=== PATIENT | male | born 1950 | race Caucasian/White ===

== ENCOUNTER 2021-05-29 23:07 | Observation (INO) ==
[2021-05-29] MEDS ORDERED: SODIUM CHLORIDE 0.9% 1000ML 1,000 ML IV SCH (23:30)
[2021-05-29 23:35] LABS: Base Excess VBG -0.9 mEq/L; HCO3 VBG 24 mmol/L; PCO2 VBG 42 mmHg (38-50); PO2 VBG 60 mmHg; pH VBG 7.38 (7.36-7.41)
[2021-05-29 23:37] LABS: Basophils # (auto) 0.04 K/uL (0-0.2); Basophils % (auto) 0.5 %; Eosinophils # (auto) 0.09 K/uL (0-0.5); Hemoglobin 17.3 g/dL (14.0-18.0); Immature Granulocytes # (auto) 0.02 K/uL (0.00-0.02); Immature Granulocytes % (auto) 0.2 %; Lymphocytes # (auto) 2.15 K/uL (1.2-3.4); Lymphocytes % (auto) 24.8 %; Mean Corpuscular Hemoglobin 27.3 pg (25-34); Mean Corpuscular Hgb Conc 34.6 g/dL (32-36); Mean Platelet Volume 10.9 fL (7.4-10.4); Monocytes # (auto) 0.65 K/uL (0.11-0.59); Monocytes % (auto) 7.5 %; Neutrophils # (auto) 5.71 K/uL (1.4-6.5); Platelet Count 215 K/uL (130-400); RDW Coefficient of Variation 13.8 % (11.5-14.5); RDW Standard Deviation 39.7 fL (36.4-46.3); Red Blood Count 6.33 M/uL (4.7-6.1); White Blood Count 8.66 K/uL (4.8-10.8)
--- NOTE | 2021-05-29 23:38 | XRay Report ---
SINGLE VIEW CHEST CLINICAL HISTORY: Generalized weakness. FINDINGS: An AP, portable, upright chest radiograph is obtained. No prior studies are available for c omparison at the time of dictation. The patient is status post midline sternotomy. The heart is enlar ged noting atherosclerotic calcification of the thoracic aorta. The pulmonary vasculature is nonconge sted. The lungs and pleural spaces are clear. No pneumothorax is seen. The bony thorax is grossly int act. IMPRESSION: Cardiomegaly with no active disease in the chest. ACT 112: Negative or not required by law. Electronically signed by: Luís Chan M.D. 05/29/2021 11:37 PM
[2021-05-29 23:59] LABS: Alanine Aminotransferase 13 U/L (7-52); Albumin Globulin Ratio 1.8 (0.9-2); Albumin Level 4.7 gm/dl (3.4-5.0); Alkaline Phosphatase 79 U/L (34-104); Anion Gap 11 (3-11); Aspartate Aminotransferase 9 U/L (13-39); BUN Creatinine Ratio 13.1 (10-20); Bilirubin,Total 0.9 mg/dl (0.2-1.0); Blood Urea Nitrogen 14 mg/dl (6-23); Calcium 9.8 mg/dl (8.5-10.1); Carbon Dioxide 25 mmol/L (21-32); Chloride 98 mmol/L (98-107); Creatine Kinase 57 U/L (30-223); Est GFR (African American) 81.7 ml/min; Est GFR (Non-African American) 70.5 ml/min; Globulin 2.6 gm/dl (2.5-4.0); Glucose 386 mg/dl (70-99(Fasting)); Potassium 3.9 mmol/L (3.5-5.1); Sodium 134 mmol/L (136-145); Total Protein 7.3 gm/dl (6.0-8.3); Troponin I 0.03 ng/ml (0-0.04)
--- NOTE | 2021-05-30 00:07 | CT Scan Report ---
CT SCAN OF THE BRAIN WITHOUT IV CONTRAST CLINICAL HISTORY: Change in mental status. COMPARISON STUDY: No priors. TECHNIQUE: Unenhanced axial CT scan of the brain is performed from the vertex to the skull base. A do se lowering technique was utilized adhering to the principles of ALARA. CT DOSE: 614.27 mGy.cm FINDINGS: Brain parenchyma: There are age-related involutional changes noting mild subcortical and periventric ular microangiopathic change. There is no hemorrhage, mass effect, or evidence of acute territorial i schemia by CT criteria. Gonzales-white matter differentiation is preserved. No extra-axial fluid collecti on is seen. Ventricles, sulci, cisterns: Prominent secondary to involutional change. Intracranial vasculature: There is atherosclerotic calcification of the cavernous carotid and vertebr al arteries. Calvarium: Unremarkable. Sinuses and mastoids: The visualized paranasal sinuses are clear. The mastoid air cells are well pneu matized. Orbits: The bony orbits are grossly intact. IMPRESSION: There is no hemorrhage, mass effect, or evidence of acute territorial ischemia by CT crit geraldine. ACT 112: Negative or not required by law. Electronically signed by: Luís Chan M.D. 05/30/2021 12:05 AM
--- NOTE | 2021-05-30 01:13 | Emergency Department Note ---
History of Present Illness General Chief complaint: Confusion Stated complaint: confusion Time Seen by Provider: 05/29/21 23:10 History of Present Illness This 70-year-old presents to the ER complaining of confusion episode Location: Generalized Quality: Confused Severity: Moderate Duration: Tonight Timing: Tonight Context: Patient was driving erratically on the road and was pulled over by police and sent here Modifying factors: better with nothing; worse with nothing Patient apparently is from [place]. He is not sure how he got here. Patient denies chest pain, dyspnea, Christian pain or any other medical complaints. He states he feels fine. No alcohol use. He is a type II diabetic. No cell phone was on him. I did have the manager commercial real estate contact family and obtained a phone number of the son. I spoke to the son and states this has happened before. They state ever since his is past 3 months ago he has been having these episodes. Son: Yaw Colindresld: [phone] Past Med/Surg History Medical History Diabetes Surgical History Hx of CABG Social History Smoking Status: Never smoker Preferred Language: Khmer Feels Safe at Home: Yes Review of Systems A total of 10 systems reviewed and were otherwise negative Physical Exam Vital Signs Vital Signs - 24 hr 05/29/21 23:12 05/30/21 00:11 05/30/21 00:30 Temperature 36.9 C Temperature Source Oral Pulse Rate 97 H 85 Pulse Rate [Finger] 87 Respiratory Rate 18 18 18 Respiratory Effort / Characteristics Non-Labored Respiratory Depth Normal Blood Pressure 176/105 H Blood Pressure [Right Arm] 159/77 H Blood Pressure Mean 128 Blood Pressure Mean [Right Arm] 104 Blood Pressure Position Sitting Blood Pressure Position [Right Arm] Lying Pulse Oximetry 95 95 97 Oxygen Delivery Method Room Air Room Air Room Air Sepsis Recent Fever Within 48 Hours No Sepsis New/Unexplained Change in Mental Status Yes Sepsis Action Taken by Nursing No Action Required VITALS: Vitals are noted on the nurse's note and reviewed by myself. Vital signs stable. GENERAL: Pleasant gentleman following commands without difficulties, in no acute distress, nondiaphoretic, well-developed well-nourished. SKIN: The skin was without rashes, erythema, edema, or bruising. There is no tenting of the skin. Capillary reflex less than 2 seconds. HEAD: Normocephalic atraumatic. EARS: External auditory canals clear, tympanic membranes pearly gonzales without erythema or effusion bilaterally. EYES: Pupils equal round and reactive to light and accommodation. Conjunctivae without injection, sclerae without icterus. Extraocular movements intact. NOSE: Patent, turbinates without inflammation or discharge. MOUTH: Mucous membranes moist. Pharynx without erythema or exudate. Uvula midline. Airway patent. Tongue does not deviate. NECK: Supple without nuchal rigidity. No lymphadenopathy. No thyromegaly. Cervical spine is nontender. No JVD. HEART: Regular rate and rhythm LUNGS: Clear to auscultation bilaterally without wheezes, rales or rhonchi. No retractions or accessory muscle use. ABDOMEN: Positive bowel sounds x 4. Normal tympanic percussion. Soft, nontender, without masses or organomegaly. Hankins sign negative. No guarding or rebound tenderness. No CVA tenderness MUSCULOSKELETAL: No muscle atrophy, erythema, or edema noted. NEURO: Patient was alert and oriented to person place and time. Normal sensation to light and sharp touch. No focal neurological deficits. Cranial nerves II through XII grossly intact. No pronator. Cerebellar exam intact. 5 out of 5 strength throughout Course Administered Medications Discontinued Medications Sodium Chloride (Nss 1000ml) 1,000 mls @ 999 mls/hr IV .[id number] ROSA ELENA Stop: 05/30/21 00:30 Last Infusion: 05/30/21 00:50 Dose: 0 mls/hr Documented by: [id number] Admin: 05/29/21 23:32 Dose: 999 mls/hr Documented by: [id number] Medical Decision Making Medical Records Attestation: I reviewed the patient's medical records. Home Medications Current Medication List: was personally reviewed by me Laboratory Data Attestation: I reviewed the patient's lab results. Result diagrams: 05/29/21 23:19 05/29/21 23:19 Lab Results 05/29/21 05/29/21 05/29/21 Range/Units 23:12 23:19 23:19 WBC (4.8-10.8) K/uL RBC (4.7-6.1) M/uL Hgb (14.0-18.0) g/dL Hct (42-52) % MCV (80-100) fL MCH (25-34) pg MCHC (32-36) g/dL RDW Std Deviation (36.4-46.3) fL RDW Coeff of Lanie (11.5-14.5) % Plt Count (130-400) K/uL MPV (7.4-10.4) fL Immature Gran % (Auto) % Neut % (Auto) % Lymph % (Auto) % Fountain % (Auto) % Eos % (Auto) % Baso % (Auto) % Neut # (Auto) (1.4-6.5) K/uL Lymph # (Auto) (1.2-3.4) K/uL Fountain # (Auto) (0.11-0.59) K/uL Eos # (Auto) (0-0.5) K/uL Baso # (Auto) (0-0.2) K/uL Immature Gran # (Auto) (0.00-0.02) K/uL VBG pH (7.36-7.41) VBG pCO2 (38-50) mmHg VBG pO2 mmHg VBG HCO3 mmol/L VBG O2 Saturation % VBG Base Excess mEq/L Sodium 134 L (136-145) mmol/L Potassium 3.9 (3.5-5.1) mmol/L Chloride 98 (98-107) mmol/L Carbon Dioxide 25 (21-32) mmol/L Anion Gap 11 (3-11) BUN 14 (6-23) mg/dl Creatinine 1.07 (0.6-1.4) mg/dl Est Cr Clr Drug Dosing Not Reportable Est GFR ( Amer) 81.7 ml/min Est GFR (Non-Af Amer) 70.5 ml/min BUN/Creatinine Ratio 13.1 (10-20) Glucose 386 H* (70-99(Fasting)) mg/dl POC Glucose 391 H* (70-99) mg/dl Calcium 9.8 (8.5-10.1) mg/dl Magnesium 2.0 (1.7-2.4) mg/dl Total Bilirubin 0.9 (0.2-1.0) mg/dl AST 9 L (13-39) U/L ALT 13 (7-52) U/L Alkaline Phosphatase 79 (34-104) U/L Total Creatine Kinase 57 (30-223) U/L Troponin I 0.03 (0-0.04) ng/ml Total Protein 7.3 (6.0-8.3) gm/dl Albumin 4.7 (3.4-5.0) gm/dl Globulin 2.6 (2.5-4.0) gm/dl Albumin/Globulin Ratio 1.8 (0.9-2) TSH (0.300-4.500) uIu/ml Ethyl Alcohol mg/dL < 10.0 (<10.0) mg/dl SARS-CoV-2, RNA, NAAT (NEGATIVE) 05/29/21 05/29/21 05/29/21 Range/Units 23:19 23:19 23:24 WBC 8.66 (4.8-10.8) K/uL RBC 6.33 H (4.7-6.1) M/uL Hgb 17.3 (14.0-18.0) g/dL Hct 50.0 (42-52) % MCV 79.0 L (80-100) fL MCH 27.3 (25-34) pg MCHC 34.6 (32-36) g/dL RDW Std Deviation 39.7 (36.4-46.3) fL RDW Coeff of Lanie 13.8 (11.5-14.5) % Plt Count 215 (130-400) K/uL MPV 10.9 H (7.4-10.4) fL Immature Gran % (Auto) 0.2 % Neut % (Auto) 66.0 % Lymph % (Auto) 24.8 % Fountain % (Auto) 7.5 % Eos % (Auto) 1.0 % Baso % (Auto) 0.5 % Neut # (Auto) 5.71 (1.4-6.5) K/uL Lymph # (Auto) 2.15 (1.2-3.4) K/uL Fountain # (Auto) 0.65 H (0.11-0.59) K/uL Eos # (Auto) 0.09 (0-0.5) K/uL Baso # (Auto) 0.04 (0-0.2) K/uL Immature Gran # (Auto) 0.02 (0.00-0.02) K/uL VBG pH 7.38 (7.36-7.41) VBG pCO2 42 (38-50) mmHg VBG pO2 60 mmHg VBG HCO3 24 mmol/L VBG O2 Saturation 90.0 % VBG Base Excess -0.9 mEq/L Sodium (136-145) mmol/L Potassium (3.5-5.1) mmol/L Chloride (98-107) mmol/L Carbon Dioxide (21-32) mmol/L Anion Gap (3-11) BUN (6-23) mg/dl Creatinine (0.6-1.4) mg/dl Est Cr Clr Drug Dosing Est GFR ( Amer) ml/min Est GFR (Non-Af Amer) ml/min BUN/Creatinine Ratio (10-20) Glucose (70-99(Fasting)) mg/dl POC Glucose (70-99) mg/dl Calcium (8.5-10.1) mg/dl Magnesium (1.7-2.4) mg/dl Total Bilirubin (0.2-1.0) mg/dl AST (13-39) U/L ALT (7-52) U/L Alkaline Phosphatase (34-104) U/L Total Creatine Kinase (30-223) U/L Troponin I (0-0.04) ng/ml Total Protein (6.0-8.3) gm/dl Albumin (3.4-5.0) gm/dl Globulin (2.5-4.0) gm/dl Albumin/Globulin Ratio (0.9-2) TSH 2.131 (0.300-4.500) uIu/ml Ethyl Alcohol mg/dL (<10.0) mg/dl SARS-CoV-2, RNA, NAAT (NEGATIVE) 05/29/21 05/30/21 Range/Units Unknown 00:41 WBC (4.8-10.8) K/uL RBC (4.7-6.1) M/uL Hgb (14.0-18.0) g/dL Hct (42-52) % MCV (80-100) fL MCH (25-34) pg MCHC (32-36) g/dL RDW Std Deviation (36.4-46.3) fL RDW Coeff of Lanie (11.5-14.5) % Plt Count (130-400) K/uL MPV (7.4-10.4) fL Immature Gran % (Auto) % Neut % (Auto) % Lymph % (Auto) % Fountain % (Auto) % Eos % (Auto) % Baso % (Auto) % Neut # (Auto) (1.4-6.5) K/uL Lymph # (Auto) (1.2-3.4) K/uL Fountain # (Auto) (0.11-0.59) K/uL Eos # (Auto) (0-0.5) K/uL Baso # (Auto) (0-0.2) K/uL Immature Gran # (Auto) (0.00-0.02) K/uL VBG pH (7.36-7.41) VBG pCO2 (38-50) mmHg VBG pO2 mmHg VBG HCO3 mmol/L VBG O2 Saturation % VBG Base Excess mEq/L Sodium (136-145) mmol/L Potassium (3.5-5.1) mmol/L Chloride (98-107) mmol/L Carbon Dioxide (21-32) mmol/L Anion Gap (3-11) BUN (6-23) mg/dl Creatinine (0.6-1.4) mg/dl Est Cr Clr Drug Dosing Est GFR ( Amer) ml/min Est GFR (Non-Af Amer) ml/min BUN/Creatinine Ratio (10-20) Glucose (70-99(Fasting)) mg/dl POC Glucose 338 H* (70-99) mg/dl Calcium (8.5-10.1) mg/dl Magnesium (1.7-2.4) mg/dl Total Bilirubin (0.2-1.0) mg/dl AST (13-39) U/L ALT (7-52) U/L Alkaline Phosphatase (34-104) U/L Total Creatine Kinase (30-223) U/L Troponin I (0-0.04) ng/ml Total Protein (6.0-8.3) gm/dl Albumin (3.4-5.0) gm/dl Globulin (2.5-4.0) gm/dl Albumin/Globulin Ratio (0.9-2) TSH (0.300-4.500) uIu/ml Ethyl Alcohol mg/dL (<10.0) mg/dl SARS-CoV-2, RNA, NAAT NEGATIVE (NEGATIVE) Imaging Data Attestation: I personally reviewed and interpreted this imaging study as follows: Radiologist's Impression: Head CT 05/29/21 23:22 CT SCAN OF THE BRAIN WITHOUT IV CONTRAST CLINICAL HISTORY: Change in mental status. COMPARISON STUDY: No priors. TECHNIQUE: Unenhanced axial CT scan of the brain is performed from the vertex to the skull base. A dose lowering technique was utilized adhering to the principles of ALARA. CT DOSE: 614.27 mGy.cm FINDINGS: Brain parenchyma: There are age-related involutional changes noting mild subcortical and periventricular microangiopathic change. There is no hemorrhage, mass effect, or evidence of acute territorial ischemia by CT criteria. Gonzales- white matter differentiation is preserved. No extra-axial fluid collection is seen. Ventricles, sulci, cisterns: Prominent secondary to involutional change. Intracranial vasculature: There is atherosclerotic calcification of the cavernous carotid and vertebral arteries. Calvarium: Unremarkable. Sinuses and mastoids: The visualized paranasal sinuses are clear. The mastoid air cells are well pneumatized. Orbits: The bony orbits are grossly intact. IMPRESSION: There is no hemorrhage, mass effect, or evidence of acute territorial ischemia by CT criteria. ACT 112: Negative or not required by law. Electronically signed by: Luís Chan M.D. 05/30/2021 12:05 AM Chest X-Ray 05/29/21 23:24 SINGLE VIEW CHEST CLINICAL HISTORY: Generalized weakness. FINDINGS: An AP, portable, upright chest radiograph is obtained. No prior studies are available for comparison at the time of dictation. The patient is status post midline sternotomy. The heart is enlarged noting atherosclerotic calcification of the thoracic aorta. The pulmonary vasculature is noncongested. The lungs and pleural spaces are clear. No pneumothorax is seen. The bony thorax is grossly intact. IMPRESSION: Cardiomegaly with no active disease in the chest. ACT 112: Negative or not required by law. Electronically signed by: Luís Chan M.D. 05/29/2021 11:37 PM MDM Narrative Prior records/ancillary studies reviewed and summarized above. Nursing notes reviewed. Additional history obtained from nursing. The patient's history was concerning for altered mental status. Differential diagnosis: Etiologies such as metabolic, infection, hypoglycemia, electrolyte abnormalities, cardiac sources, intracerebral event, toxicologic, neurologic, as well as others were entertained. Physical examination: As above. ER treatment provided: IV Lock Normal saline hydration. An order was placed for continuous cardiac monitoring. The monitor shows a rate of 60-1 50 with a sinus rhythm. I spoke to the son to obtain further history per the patient's request On reassessment the patients mental status improved. Diagnostics interpretation by me: ECG: Ordered for confusion EKG: Normal sinus, occasional PVC, right axis deviation, poor baseline, rate of 98. Impression normal sinus with PVCs with a right axis deviation interpreted by myself The labs revealed negative troponin. Negative alcohol Hyperglycemia without DKA. VBG was reviewed Imaging studies: As above Given the above diagnostic work-up and treatment, this episode appears to be consistent with confusion episode. Further treatment will be required. No acute findings were noted. Patient was neurovascularly and neurologically intact. Medicine was consulted. The son will brass pickler the patient in the morning. Consultation: A consultation was placed with the hospitalist. The case was discussed and diagnostics were reviewed. The patient was evaluated in the ER for further treatment. The chart was completed utilizing [employer] Speech voice recognition software. Grammatical errors, random word insertions, pronoun errors, and incomplete sentences are an occassional consequence of this system due to software limitations, ambient noise, and hardware issues. Any formal questions or concerns about the content, text, or information contained within the body of this dictation should be directly addressed to the physician regulatory assistant for clarification. Impression & Plan Altered mental status, Diabetes mellitus with hyperglycemia Discharge Plan Visit Data Chief Complaint: Confusion Stated Complaint: confusion ED Provider: Radha Nichole ED Midlevel Provider: Lola Cox Discharge Problem: Altered mental status, Diabetes mellitus with hyperglycemia Patient Disposition: Admitted As Inpatient Condition: Good Forms Stand Alone Forms: My [facility] Referrals Referrals: PCP,NO [Primary Care Provider] -
[2021-05-30] MEDS ORDERED: NovoLIN-R INSULIN PER UNIT CHARGE IV STA (03:26)
[2021-05-30] MEDS ORDERED: ACETAMINOPHEN 325 MG TAB PO PRN (05:37)
[2021-05-30] MEDS ORDERED: POLYETHYLENE (MIRALAX) 17 GM PACK PO PRN (05:37)
[2021-05-30] MEDS ORDERED: ONDANSETRON INJ 2 MG/ML 2 ML VIAL IV PRN (05:37)
[2021-05-30] MEDS ORDERED: NITROGLYCERIN SL 0.4 MG/TAB TAB SL PRN (05:37)
[2021-05-30] MEDS: SODIUM CHLORIDE 0.9% 1000ML 1,000 ML IV SCH ×2 (05:51→16:40)
[2021-05-30 07:22] LABS: Basophils # (auto) 0.03 K/uL (0-0.2); Basophils % (auto) 0.4 %; Eosinophils # (auto) 0.12 K/uL (0-0.5); Eosinophils % (auto) 1.6 %; Hematocrit (blood only) 42.8 % (42-52); Hemoglobin 14.9 g/dL (14.0-18.0); Immature Granulocytes # (auto) 0.02 K/uL (0.00-0.02); Immature Granulocytes % (auto) 0.3 %; Lymphocytes # (auto) 1.83 K/uL (1.2-3.4); Lymphocytes % (auto) 24.2 %; Mean Corpuscular Hemoglobin 27.2 pg (25-34); Mean Corpuscular Hgb Conc 34.8 g/dL (32-36); Mean Corpuscular Volume 78.1 fL (80-100); Mean Platelet Volume 10.7 fL (7.4-10.4); Monocytes # (auto) 0.66 K/uL (0.11-0.59); Monocytes % (auto) 8.7 %; Neutrophils # (auto) 4.91 K/uL (1.4-6.5); Neutrophils % (auto) 64.8 %; Platelet Count 175 K/uL (130-400); RDW Coefficient of Variation 13.7 % (11.5-14.5); RDW Standard Deviation 38.3 fL (36.4-46.3); Red Blood Count 5.48 M/uL (4.7-6.1); White Blood Count 7.57 K/uL (4.8-10.8)
[2021-05-30] MEDS: HEPARIN SOD 5,000 UNIT/0.5 ML VIAL SQ SCH ×3 (07:29→21:43)
[2021-05-30 08:06] LABS: Est GFR (African American) 102.1 ml/min; Est GFR (Non-African American) 88.1 ml/min; Potassium 3.8 mmol/L (3.5-5.1)
[2021-05-30 08:07] LABS: BUN Creatinine Ratio 14.9 (10-20); Calcium 8.8 mg/dl (8.5-10.1); Magnesium 1.8 mg/dl (1.7-2.4)
[2021-05-30] MEDS: INSULIN GLARGINE SOLOSTAR 100 UNITS/ML 3 ML PEN SC SCH ×2 (08:18→21:44)
[2021-05-30] MEDS: INSULIN ASPART PER UNIT SC SCH ×4 (08:18→20:53)
--- NOTE | 2021-05-30 08:28 | History and Physical Report ---
DATE OF ADMISSION: 05/30/2021. CHIEF COMPLAINT: Confusion. HISTORY OF PRESENT ILLNESS: A 70-year-old male with past medical history significant for diabetes, hypertension, hyperlipidemia, CAD status post CABG, who was found to be confused as he was driving erratically and his vehicle was stopped by iridologist and brought him to the hospital. The patient is currently alert and oriented. The patient states his 3 months ago and since then he is living close to his son in [place]. He says son brought him there to keep an eye on him. Patient says without telling his son he came to [place] to meet couple of people whom he knows. He says he was close to [facility] and then he was trying to go back to his house in [place] when he was following few people on the road. He thinks they were driving erratically and he tried to follow them and they thought he was driving erratically and hence iridologist came and brought him here. He could tell his name, he could tell his date of , knows that he is in the hospital in [place], thinks it is May 27, but knows the year correctly as 2021. Denies any headache, denies any blurred visions, denies any earache or runny nose. Has some cough. No fever, no nausea, no vomiting, no abdominal pain, no chest pain, no shortness of breath. Appetite is okay. No dysphagia. No diarrhea or constipation. Normal bladder movements. Ambulating okay. Currently resting comfortably and hemodynamically stable. He says he uses a bunch of medications, but he did not bring his medications as he was expecting to go back to his house in [place] and does not know his medications. ALLERGIES: No known drug allergies. PAST MEDICAL HISTORY: As mentioned above. PAST SURGICAL HISTORY: CABG. FAMILY HISTORY: Significant for both the parents have heart disease. SOCIAL HISTORY: Quit smoking 32 years ago. Denies any alcohol use. Currently living in [place] close to his son. REVIEW OF SYSTEMS: As per HPI. Rest of the review of systems is negative. PHYSICAL EXAMINATION: GENERAL: The patient is obese, not in acute distress. VITAL SIGNS: Temperature 36.9, pulse 87, respiratory rate 18, blood pressure 115/77, oxygen 97% on room air. HEENT: Pupils equal, round and reactive to light. Oral mucosa moist. NECK: No JVD, no masses. CARDIOVASCULAR: S1 and S2 heard. Regular rate and rhythm. No murmur, no gallop. RESPIRATORY SYSTEM: Normal AP diameter. No accessory muscle use. No wheezing, no crackles. ABDOMEN: Soft, bowel sounds present, nontender, no distention. CENTRAL NERVOUS SYSTEM: Cranial nerves, alert and oriented x3. Speech is clear, no facial droop. Insight is okay. Obeys simple commands. Moves extremities. EXTREMITIES: Trace pedal edema present. No erythema seen. LABORATORY DATA: WBC is 8.6, hemoglobin 17.3, hematocrit 50, platelets 215. Venous blood gas, pH of 7.38, pCO2 of 42, pO2 of 60. Sodium 134, potassium 3.9, chloride 98, bicarbonate 25, BUN 14, creatinine 1.07, serum glucose 386, calcium 9.8, magnesium 2, total bilirubin 0.2, AST 9, ALT 13, alkaline phosphatase 79, total creatine kinase 57, troponin I of 0.03, TSH 2.1, ethyl alcohol less than 10. SARS-CoV-2 RNA negative. IMAGING DATA: Chest x-ray, no acute findings. CT of the head, no acute findings. EKG: Sinus arrhythmia with frequent PVCs at a rate of 98. ST abnormalities seen. No previous ECGs to compare. ASSESSMENT AND PLAN: This 70-year-old male was found to be riding erratically on the road and confused and brought to the hospital. 1. Confusion: The patient is currently alert and oriented. Mental status seems to be okay. ER physician called the son, the phone is on the chart in the ER physician notes, and as per son, since his 3 months ago, this kind of episode has happened before. The patient may possibly have early dementia. Initial workup is negative. Except for hyperglycemia, rest of the labs are okay, ABGs are okay. Will observe in the hospital. Will get a neuro consult and also psych consult. Will monitor in the [facility]. 2. Hyperglycemia: The patient has a history of diabetes. The patient does not remember what medicine he takes. He says he was expected to go back home. He has all his medication at home, he is not carrying with him. Will give a dose of IV insulin and place him on Lantus insulin sliding scale. Follow the HbA1c, follow the blood sugars. Will place on IV fluids. 3. History of coronary artery disease: Status post coronary artery bypass graft as per the patient. Will place him on aspirin, statin, and beta prema. 4. Hypertension: Will place on low-dose lisinopril 5 mg and Lopressor 25 b.i.d. and monitor the blood pressure. 5. Hyperlipidemia: Will place him on statin. 6. Deep venous thrombosis: Heparin subcutaneous. DISPOSITION: Closely monitor in the [facility]. Social service to help with discharge planning. To discuss with son for further disposition in the a.m. Job ID: [id number] MTDD
[2021-05-30] MEDS ORDERED: lisinopril 5 MG TAB PO SCH (09:00)
[2021-05-30] MEDS ORDERED: METOPROLOL TARTRATE 25 MG TAB PO SCH (09:00)
[2021-05-30] MEDS ORDERED: ATORVASTATIN 40 MG TAB PO SCH (09:00)
--- NOTE | 2021-05-30 09:46 | Communication Note ---
Date of Service: May 30, 2021 Patient seen and examined Patient is currently AOX3 Exam is grossly unremarkable Denied any complaints on ROS Denied any depression, suicidal/homicidal ideation. Reported he is getting over grieving his that some months ago Agree with plans as detailed by Dr Lopez in H&P this morning Agree with psych c/s Get MRI brain, EEG, TSH, B12. Patient does not recall names/doses of his home meds Continue lisinopril, insulin regimen started by Dr Lopez Spoke with son over the phone, updated him. Son will call home to get us list of his home meds for proper med rec
--- NOTE | 2021-05-30 11:24 | Electrocardiogram Report ---
Test Reason : Blood Pressure : / mmHG Vent. Rate : 098 BPM Atrial Rate : 098 BPM P-R Int : 202 ms QRS Dur : 124 ms QT Int : 378 ms P-R-T Axes : 048 046 204 degrees QTc Int : 482 ms Sinus rhythm with frequent Premature ventricular complexes and PAC's Left atrial enlargement Left bundle branch block Abnormal ECG No previous ECGs available Confirmed by Jose Vincent ([id number]) on 05/30/2021 11:24:17 AM Referred By: REFERRED SELF Confirmed By:Jose Vincent
[2021-05-30 12:48] LABS: Appearance Urine Clear (Clear); Bilirubin Urine Negative (Negative); Blood Urine Negative (Negative); Color Urine Yellow; Glucose Urine UA 3+ (Negative); Ketones Urine Negative (Negative); Leukocyte Esterase Urine Negative (Negative); Nitrite Urine Negative (Negative); Protein Urine Negative (Negative); Specific Gravity Urine 1.031 (1.000-1.030); Urobilinogen Urine Negative (Negative)
[2021-05-30 13:46] LABS: Folate (Folic Acid) 13.31 ng/ml (>5.38)
[2021-05-30] MEDS ORDERED: GADOBUTROL 65ML VIAL IV ONE (13:51)
--- NOTE | 2021-05-30 14:14 | Magnetic Resonance Report ---
MR brain seizure wo/w con HISTORY: 70 years-old Male new cognitive dysfunction, mult vasc risk factors acute seizure like acti vity. COMPARISON: Head CT of same day TECHNIQUE: Multiplanar multisequence MRI of the brain was obtained both with and without 9.7 cc Gadav ist utilizing seizure protocol. FINDINGS: Fiscal Technician localizer images demonstrate no gross extracranial abnormality. No restricted diffusion to sugg est acute or subacute infarct. Midline structures appear unremarkable. Partially imaged C7. Degenerat santi changes are noted within the imaged cervical spine. No acute intracranial hemorrhage, midline alma ft, abnormal extra-axial collection, hydrocephalus or mass. Subcentimeter lipoma of the falx cerebri. No pathologic intracranial blooming artifact. Age-related involutional changes with mild ex vacuo ve ntriculomegaly. Mild white matter/FLAIR hyperintense foci suggest chronic microvascular ischemic dise ase. Mesial temporal lobes appear normal bilaterally. No acute seizure focus, kiser matter heterotopia or cortical dysplasia. There is no abnormal intra-axial or extra-axial enhancement. The cerebral venous sinuses and major ar terial flow voids appear patent. Mastoid air cells and paranasal sinuses are generally clear. The sku ll, orbits and soft tissues are unremarkable IMPRESSION: 1. No acute intracranial abnormality. No acute or subacute infarct. 2. No abnormal enhancement. 3. Age-related involutional changes with suggestion of mild chronic microvascular ischemic disease. ACT 112: Negative or not required by law. The above report was generated using voice recognition software. It may contain grammatical, syntax o r spelling errors. Electronically signed by: Cuba Bridges M.D. 05/30/2021 2:13 PM
[2021-05-30 14:18] LABS: Amphetamines+Metham, Urine Neg (Neg); Barbiturates, Urine Neg (Neg); Benzodiazepine, Urine Neg (Neg); Cocaine, Urine Neg (Neg); MDMA (Ecstacy), Urine Neg (Neg); Methadone, Urine Neg (Neg); Opiate, Urine Neg (Neg); Phencyclidine, Urine Neg (Neg)
--- NOTE | 2021-05-30 14:37 | Consultation Report ---
DATE OF NOTE: 05/30/2021 REASON FOR CONSULTATION: Erratic behavior. HISTORY OF PRESENT ILLNESS: The patient is a 70-year-old male with diabetes, hypertension, and hyper lipidemia. The history is obtained from the chart as well I discussed the case with the patient's so n, Yaw Andrews. The patient was brought to our Emergency Room because he was stopped by the joseline ce for driving erratically. The patient indicates that he has been pulled over 3 times in the last w [place] for driving erratically. He does not recall where he was going yesterday, but indicates that he has been following a group of people. He does not know what the destination was. He denies that the re has been any accidents. He denies that he has been ill, has not had any headaches. No history of stroke. No new weakness or numbness. He has been noncompliant with his medications for an unknown period of time. ADDITIONAL HISTORY: Obtained from the son indicates that his mother suddenly in December and patient's son had his dad come live with him for 3-4 months and he moved into his own home about a month ago. The son did note some difficulty with memory and some strange trips; however, the patient indicates that his father has not always been truthful about things, so it has been very difficult f or him to assess his cognition. Apparently, the last 10 years, the patient and his have made poor financial choices, squandering money, living in a boarding house and being hoarders. He does believe that his mother was helping w ith medication management with the father, but he believes that his father was doing most of the bill pay. One of the contingencies to start living nearby the son was that he restart his medications. It was noted by the son that he was not taking his medications regularly. He has not been taking any of his medications for an unknown period of time. 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 Occasionally , prior he would get lost going to unfamiliar places, but would arrive a few minutes late. The patie nt worked until he was 66 and is retired. No history of stroke, seizure, cancer. His weight has been stable. He may have some polyuria and po lydipsia. His mother of dementia at 76 and she was diagnosed somewhere between 5-10 years prior . On admission, CT of the head noncontrast showed no acute abnormality. Chest x-ray, cardiomegaly w ith no active disease. Electrocardiogram, sinus rhythm with frequent PVCs and PACs, left atrial enla rgement, left bundle branch, abnormal EKG. Labs were notable for normal thyroid function, normal whi te count, H and H and platelet count. Serum sodium was 134, glucose 386 and point of care glucose 39 1, calcium and magnesium were normal. Liver functions were normal. CK normal. Urinalysis notable f or positive glucose, negative ketones. Tox screen was negative. COVID testing was negative. MEDICAL HISTORY: As above. PAST SURGICAL HISTORY: Bypass, quit smoking 32 years ago. No alcohol use. FAMILY HISTORY: As above. Additionally, both parents had heart disease. ALLERGIES: No known allergies. PHYSICAL EXAMINATION: The patient is awake and alert. He looks well nourished and he is in no distr ess. He is not oriented to the name of the hospital or the town and had difficulty generating that w e were in [place]. He gave [place] as the name of the [facility]. There is no right/left confu tonya. No spontaneous word finding difficulty, naming repetitions and 3-step commands were normal. M lula was 0/3 at 3 minutes. He does not know who the president is. He was vague on the names of the town where his children lived. He was also vague on the details of the people he was reported to be following and where they were going. Head was normocephalic, atraumatic. There were no carotid bru its, no heart murmurs. Heart is regular rate and rhythm. Pupils are equal, round and reactive to li ght. I could not visualize the optic nerve reliably on the right. It grossly appeared normal on the left. Normal fernandes, motility, facial symmetry. No dysarthria. Tongue is midline. Motor is 5/5, no drift. Normal rapid alternating movements. Symmetric reflexes, diminished ankle jerks, downgoing toes. [id number] is tremulous. [id number]-[id number] is normal. Venous stasis changes are noted in the feet. IMPRESSION: This patient appears currently to have cognitive dysfunction and does not appear to be d elirious. I am suspicious that he has an underlying dementia and he may have been more decompensated due to untreated hypertension, elevated blood sugars. PLAN: Recommend MRI of the brain with and without contrast, EEG to rule out seizures as the etiology of these episodes of erratic driving. Additional blood work including a B12, B1, folate, and RPR. If the patient is discharged prior to that workup, the testing will need to be performed as an outpat ient. The patient will need to establish with a neurologist in his area. The patient should not be permitt ed to drive at present. We will see the patient in followup tomorrow if he remains in the hospital. I sent a communication to Dr. Matamoros who appears to be the provider taking care of the patient. Job ID: [id number]
--- NOTE | 2021-05-30 16:14 | Psychiatric Consultation ---
Date of Consultation May 30, 2021 Impression / Recommendations Impression This is a 70 yo old admitted for confusion and erratic driving. Diagnostically consistent with likely neurocognitive disorder/dementia. No evidence for any primary psychiatric conditions causing his memory issues, does have grief related to his 's recent but he feels well supported by his family in coping with this. Given his reported history of wandering behaviors/erratic driving and worsening memory an outpatient neurocognitive workup is warranting to diagnose suspected dementia. He should not drive home once medical workup is complete, will need family to transport him back to [place] to ensure he gets there safely and would recommend he not drive until further memory workup is completed as he may no longer be appropriate to drive. Family may also want to consider having him in a more structured living environment or adding alarms to his home/GPS tracker on his phone and keys so they know if he leaves the home and begins wandering. (1) Neurocognitive disorder: -Outpatient neurocognitive evaluation for suspected neurocognitive disorder -Continue workup to rule out reversible causes -He will need someone to provide transport home to [place]; he should not drive until outpatient assessment has been completed and he has been deemed safe to drive Risk Factors Assessment Do You Have Access To A Gun?: No Psych History Identifying Data 70 yo man with no known psychiatric history was admitted medically for altered mental status after being pulled over for driving erratically and found to have urinary incontinence and limited recall. Psychiatry consulted for concern for possible depression. Chief Complaint "I can't remember where I was visiting, somewhere in [facility]". History of Present Illness Morris presented via police to the ED after he was found driving erratically with urinary incontinence and unable to recall details about where he had come from nor where he was going. On my assessment he denies any psychiatric symptoms though does endorse periods of sadness related to his 's recent a few months ago. He denies depression but states that sometimes the grief "weighs quite substantially". He denies SI stating "I would never do that, my middle son attempted suicide three times and I know how much that impacts a family". He denies any psychiatric history nor current symptoms of bobby nor psychosis. He denies anxiety. He denies any substance use. Denies any prior psych hospitalizations nor taking any psychiatric medications. He knows he is in the hospital and that it is May and 2021. He cannot recall the city nor who he was trying to visit nor where they lived in [place]. Knows he moved near his son in [place] but can't recall the name of the city. He denies any recent issues with balance or falls. States he has "probably" been having issues with his memory but cannot provide any type of timeline regarding when this started. 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 Past Psychiatric History Previous Psych History: denies Do You Have Access To A Gun?: No Allergies Allergy/AdvReac Type Severity Reaction Status Date / Time No Known Allergies Allergy Verified 05/30/21 01:38 Family History son with history of depression and suicide attempts Substance Abuse History denies any substance use Personal History Beliefs That Will Affect Care: None Patient History Medical History Diabetes Surgical History Hx of CABG Social History Smoking Status: Former smoker Do You Dip or Chew Tobacco: No; Hx Alcohol Use: Yes Alcohol type: beer Hx Substance Use: No Preferred Language: Serbian Communication Ability: Effective Knuckler Required: No Beliefs That Will Affect Care: None marital status: Current Living Situation: Alone How many Children do You have: 2 Feels Safe at Home: Yes Safety Concerns: Feels Safe At This Time Assistive Devices: None Physical Exam Psychiatric: Orientation: alert, oriented to person and oriented to place Apperance: appropriately dressed and appropriately groomed Eye Contact: + fair eye contact Motor Behavior: steady gait and station and no abnormal motor movements; n tremor Speech: normal rate/rhythm/volume of speech Affect: + constricted affect Mood: no depressed mood and no anxious mood Thought Process: + concrete thought process Thought Content: reality based without delusions Suicidal Thoughts: denies suicidal thoughts Homicidal Thoughts: denies homicidal thoughts Hallucinations: no auditory hallucinations and no visual hallucinations Cognition: attention grossly intact and language grossly intact; + recent memory not intact and + remote memory not intact Estimated Intelligence: consistent with education level Insight: + impaired insight Judgement: + impaired judgement Vital Signs (Past 24 Hours): Last Vital Signs Temp 37.0 C 05/30/21 15:29 Pulse 73 05/30/21 15:29 Resp 18 05/30/21 15:29 BP 112/69 05/30/21 15:29 Pulse Ox 96 05/30/21 15:29 Review of Systems All systems reviewed & are unremarkable except as noted in HPI & below Results & Data (PSY) Laboratory Results slightly low Na+ Diagnostic Findings normal CT head Medications Administered Atorvastatin Calcium (Atorvastatin 40 Mg Tab) 40 mg PO QAM [facility] Stop: 06/29/21 08:59 Last Admin: 05/30/21 07:29 Dose: 40 mg Documented by: [id number] Heparin Sodium (Porcine) (Heparin Sod 5,000 Unit/0.5 Ml Vial) 5,000 units SQ Q8 [facility]LE[facility] Stop: 06/29/21 05:59 Last Admin: 05/30/21 11:21 Dose: 5,000 units Documented by: [id number] Admin: 05/30/21 07:29 Dose: 5,000 units Documented by: [id number] Sodium Chloride (Nss 1000ml) 1,000 mls @ 100 mls/hr IV .Q10H [facility] ELENA Stop: 06/29/21 05:36 Last Admin: 05/30/21 05:51 Dose: 100 mls/hr Documented by: [id number] Insulin Aspart (Insulin Aspart Per Unit) 0 units SC ACHS [facility] Stop: 06/29/21 07:29 Last Admin: 05/30/21 12:13 Dose: 14 units Documented by: [id number] Cosigned by: [id number] Admin: 05/30/21 08:18 Dose: 11 units Documented by: [id number] Cosigned by: [id number] Insulin Glargine (Insulin Glargine Solostar 100 Units/Ml 3 Ml Pen) 6 units SC BID [facility]EE[facility] Stop: 06/29/21 08:59 Last Admin: 05/30/21 08:18 Dose: 6 units Documented by: [id number] Cosigned by: [id number] Lisinopril (Lisinopril 5 Mg Tab) 5 mg PO QAM [facility] Stop: 06/29/21 08:59 Last Admin: 05/30/21 07:28 Dose: 5 mg Documented by: [id number] Metoprolol Tartrate (Metoprolol Tartrate 25 Mg Tab) 25 mg PO BID [facility] ELENA Stop: 06/29/21 08:59 Last Admin: 05/30/21 07:29 Dose: 25 mg Documented by: [id number] Coding Level of Care Code 30536 Inpt Consult Level 3 Diagnoses Neurocognitive disorder R41.9
[2021-05-30] MEDS: RANOLAZINE 500 MG ER TAB PO SCH (21:47)
[2021-05-31] MEDS: HEPARIN SOD 5,000 UNIT/0.5 ML VIAL SQ SCH ×2 (06:08→15:48)
[2021-05-31 07:22] LABS: Estimated Average Glucose 309 mg/dl; Hemoglobin A1C 12.4 % (4.5-5.6)
[2021-05-31] MEDS ORDERED: PHARMACY GLYCEMIC MGMT CONSULT PRN (07:48)
[2021-05-31] MEDS: INSULIN ASPART PER UNIT SC SCH ×2 (07:59→12:11)
[2021-05-31] MEDS: RANOLAZINE 500 MG ER TAB PO SCH (08:02)
[2021-05-31] MEDS ORDERED: EZETIMIBE 10 MG TABLET PO SCH (09:00)
[2021-05-31] MEDS ORDERED: ISOSORBIDE MONO EXTENDED REL 60 MG TABCR PO SCH (09:00)
[2021-05-31] MEDS ORDERED: LOSARTAN POTASSIUM 50 MG TAB PO SCH (09:00)
[2021-05-31] MEDS ORDERED: ASPIRIN 81 MG ECTAB PO SCH (09:00)
[2021-05-31] MEDS ORDERED: ATENOLOL 50 MG TABLET PO SCH (09:00)
[2021-05-31] MEDS ORDERED: INSULIN GLARGINE SOLOSTAR 100 UNITS/ML 3 ML PEN SC SCH ×2 (09:00→21:00)
[2021-05-31] MEDS ORDERED: CLOPIDOGREL BISULFATE 75 MG TAB PO SCH (09:00)
--- NOTE | 2021-05-31 11:40 | Pharmacy Report ---
Pharmacy Glycemic Short Note 2 - Date of Service May 31, 2021 - Glycemic Short BSG Results (Last 24 hours): 05/30/21 05/30/21 05/30/21 11:42 16:34 20:21 POC Glucose 234 H 180 H 128 H 05/31/21 07:22 POC Glucose 230 H OUTPATIENT ANTIDIABETIC REGIMEN: * not available - Per notes patient does not know the names of home medications, there is a note that provider will be reaching out to patient's son to confirm home medications * A1c 12.4% ASSESSMENT: * 70 year old admitted with confusion. PMHx significant for DM, CAD, htn. Pharmacy consulted for glycemic monitoring. * Patient received total of 45 units of insulin yesterday, of which 12 units were basal * Fasting BSG elevated at 230 mg/dL - plan to titrate up basal insulin. Will trial between 20-25 units today to aim for more of 50/50 split with basal/novolog (based upon TDD of insulin yesterday) * Continue same CF/CR PLAN FOR INPATIENT GLYCEMIC CONTROL: * Hold outpatient oral diabetes medications * Basal insulin - increase * Lantus 10 units this AM * Lantus 10-15 units QPM * Bolus insulin * NovoLog per scale ACHS or Q6hrs while NPO * Goal Range: Low 110 mg/dL - High 140 mg/dL * Correction Factor: 30 mg/dL/unit * Nutritional / Prandial insulin per carb ratio of 1 unit per 7 grams CHO consumed PLAN FOR DISCHARGE: * A1c elevated on admission 12.4%. Likely, a component of noncompliance at home with medications. Will follow to determine if more information is found out about home medications
[2021-05-31] MEDS ORDERED: INSULIN GLARGINE SOLOSTAR 100 UNITS/ML 3 ML PEN SC ONE (11:45)
--- NOTE | 2021-05-31 11:50 | Neurology Progress Note ---
Date of Service May 31, 2021 Assessment & Plan (1) Neurocognitive disorder: Plan: 1. MRI brain- no strokes or lesions 2. EEG- not done may not need at this point 3. will need transportation back to home in [place] 4. he should not be driving. 5. vit b12 low, thiamine-pending, should check Vit D level 6. PT/OT for discharge needs 7. will need higher level of supervision and help with medications 8. psychiatry on board - probable undiagnosed dementia 9. he will need follow up once he is back in [place] with neurology for full work up for dementia (2) Altered mental status: Plan: 1. EEG not done Admission and Anticipated Discharge Date Admission Date: May 30, 2021 Supervising Physician Co-Signing Physician Notes Patient was seen and examined this afternoon. He is resting in bed. 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 This can be seen following severe psychsoccial stressors. He is oriented and following all commands. Will need follow up close to home when he returns. Emily lara from neuropsych eval as outpatient. Please call contact me with any additional questions or concerns. Cris Caceres is a 70 year old male with PMH- DM, HTN, HLD, CAD status post CABG, who was found to be confused as he was driving erratically and his vehicle was stopped by commodity analyst and brought him to [facility] ED 05/29/21. His 3 months ago and since then he is living close to his son in [place]. His son brought him there to keep an eye on him. he left [place] without telling his son he came to [place] to meet couple of people whom he knows. He was close to [facility] and then he was trying to go back to his house in [place] when he was following few people on the road. He says he uses a bunch of medications, but he did not bring his medications as he was expecting to go back to his house in [place] and does not know his medications.An MRI brain was ordered along with an EEG yesterday. He currently has no complaints he does not know how he arrived here or why he is here but admits to being confused. denies CP, SOB, abdominal pain, blacking out of passing out. Review of Systems Review of Systems: All systems reviewed & are unremarkable except as noted in HPI & below Physical Exam Physical Exam: Physical Exam: Constitutional: appearance over nourished, healthy and normal Ears, Nose, Mouth and Throat: mucous membranes moist, no injection and skin normal, eyes normal Cardiovascular: normal S-1 and S-2 and regular rate and rhythm Respiratory: clear to auscultation (CTA) and no rales, rhonchi or wheeze Musculoskeletal: no peripheral edema and good distal pulses Skin: no stigmata of neurocutaneous disease noted and normal and intact Eyes: extraocular muscles intact (EOMI) and pupils equal, round and reactive to light (PERRL) NEUROLOGIC EXAMINATION: Mental status: Alert and interactive Oriented May 31/ hospital but does not know the name but does know he is in [place]. he does not know where he lives Oriented to person Speech fluent with no evidence of aphasia Cranial Nerves smile eye brow raise Reflexes: Deep tendon reflexes were symmetrical and graded 2/5. Sensory: no sensory deficits Coordination: finger to nose Gait/Stance: Posture normal. Motor: Negative for pronator drift of out stretched arms with eyes closed. Strength: biceps triceps hand television servicer 5/5 bilaterally , hip flex plantar flex ext 5/5 Results & Data ([facility]) Vital Signs (Past 12 Hours) Vital Signs Temp Pulse Pulse Pulse Resp BP BP 05/31/21 11:15 37 C 70 17 112/70 05/31/21 08:00 84 116/76 05/31/21 07:30 36.8 C 70 17 122/78 05/31/21 07:00 79 05/31/21 03:15 36.6 C 70 18 114/70 Pulse Ox 05/31/21 11:15 95 05/31/21 08:00 05/31/21 07:30 96 05/31/21 07:00 05/31/21 03:15 98 Laboratory Results Abnormal lab results 05/30/21 05/30/21 05/30/21 Range/Units 06:55 12:42 12:42 POC Glucose (70-99) mg/dl Hemoglobin A1c 12.4 H (4.5-5.6) % Vitamin B12 141 L (211-911) pg/ml Ur Specific Benedict 1.031 H (1.000-1.030) Urine Glucose (UA) 3+ H (Negative) 05/30/21 05/30/21 05/31/21 Range/Units 16:34 20:21 07:22 POC Glucose 180 H 128 H 230 H (70-99) mg/dl Hemoglobin A1c (4.5-5.6) % Vitamin B12 (211-911) pg/ml Ur Specific Benedict (1.000-1.030) Urine Glucose (UA) (Negative) 05/31/21 Range/Units 11:35 POC Glucose 287 H (70-99) mg/dl Hemoglobin A1c (4.5-5.6) % Vitamin B12 (211-911) pg/ml Ur Specific Benedict (1.000-1.030) Urine Glucose (UA) (Negative) Diagnostic Findings CT head-there is no hemorrhage, mass effect, or evidence of acute territorial ischemia by CT criteria. CXR- Cardiomegaly with no active disease in the chest. MRI Brain-. No acute intracranial abnormality. No acute or subacute infarct. No abnormal enhancement. Age-related involutional changes with suggestion of mild chronic microvascular ischemic disease. (1) Altered mental status Altered mental status type: unspecified Qualified Code(s): R41.82 - Altered mental status, unspecified
[2021-05-31] MEDS ORDERED: INSULIN ASPART PER UNIT SC SCH (16:30)
--- NOTE | 2021-05-31 16:37 | Discharge Summary ---
Date of Service May 31, 2021 Admission HPI Per Admitting Provider A 70-year-old male with past medical history significant for diabetes, hypertension, hyperlipidemia, CAD status post CABG, who was found to be confused as he was driving erratically and his vehicle was stopped by manager trading and brought him to the hospital. The patient is currently alert and oriented. The patient states his 3 months ago and since then he is living close to his son in [place]. He says son brought him there to keep an eye on him. Patient says without telling his son he came to [place] to meet couple of people whom he knows. He says he was close to [facility] and then he was trying to go back to his house in [place] when he was following few people on the road. He thinks they were driving erratically and he tried to follow them and they thought he was driving erratically and hence manager [employer] came and brought him here. He could tell his name, he could tell his date of , knows that he is in the hospital in [place], thinks it is May 27, but knows the year correctly as 2021. Denies any headache, denies any blurred visions, denies any earache or runny nose. Has some cough. No fever, no nausea, no vomiting, no abdominal pain, no chest pain, no shortness of breath. Appetite is okay. No dysphagia. No diarrhea or constipation. Normal bladder movements. Ambulating okay. Currently resting comfortably and hemodynamically stable. He says he uses a bunch of medications, but he did not bring his medications as he was expecting to go back to his house in [place] and does not know his medications. Admission Exam Per Admitting Provider GENERAL: The patient is obese, not in acute distress. VITAL SIGNS: Temperature 36.9, pulse 87, respiratory rate 18, blood pressure 115/77, oxygen 97% on room air. HEENT: Pupils equal, round and reactive to light. Oral mucosa moist. NECK: No JVD, no masses. CARDIOVASCULAR: S1 and S2 heard. Regular rate and rhythm. No murmur, no ga llop. RESPIRATORY SYSTEM: Normal AP diameter. No accessory muscle use. No wheezing, no crackles. ABDOMEN: Soft, bowel sounds present, nontender, no distention. CENTRAL NERVOUS SYSTEM: Cranial nerves, alert and oriented x3. Speech is clear, no facial droop. Insight is okay. Obeys simple commands. Moves extremities. EXTREMITIES: Trace pedal edema present. No erythema seen. Principal Diagnosis Neurocognitive disorder Poorly controlled Diabetes mellitus Discharge Exam Constitutional + well hydrated; no acute distress Eyes PERRL, conjunctivae normal, anicteric sclerae ENMT external ear and nose normal, oropharynx normal Respiratory normal respiratory effort, lungs clear to auscultation Cardiovascular RRR S1 S2 Gastrointestinal (Abdomen) normal bowel sounds, soft, nontender, no hepatosplenomegaly Musculoskeletal no cyanosis or clubbing, extremities motor strength 5/5 Neurologic PERRL, EOMI, accommodation nl, no face palsy, no dysarthria Alert and oriented to person, place (knows he is in a hospital in [place] but knot name) and time Discharge Data Allergies Allergy/AdvReac Type Severity Reaction Status Date / Time No Known Allergies Allergy Verified 05/30/21 01:38 Consultations 05/30/21 01:07 ED Decision to Admit Stat 05/30/21 05:37 Consult Psychiatry Routine 05/30/21 08:00 Consult Neurology Routine Ordered Studies 05/29/21 23:22 CT head/brain wo con Stat Brain parenchyma: There are age-related involutional changes noting mild subcortical and periventricular microangiopathic change. There is no hemorrhage, mass effect, or evidence of acute territorial ischemia by CT criteria. Gonzales- white matter differentiation is preserved. No extra-axial fluid collection is seen. Ventricles, sulci, cisterns: Prominent secondary to involutional change. Intracranial vasculature: There is atherosclerotic calcification of the cavernous carotid and vertebral arteries. Calvarium: Unremarkable. Sinuses and mastoids: The visualized paranasal sinuses are clear. The mastoid air cells are well pneumatized. Orbits: The bony orbits are grossly intact. IMPRESSION: There is no hemorrhage, mass effect, or evidence of acute territorial ischemia by CT criteria. 05/30/21 12:34 MR brain seizure wo/w con Routine Classroom Instructional Aide localizer images demonstrate no gross extracranial abnormality. No restricted diffusion to suggest acute or subacute infarct. Midline structures appear unremarkable. Partially imaged C7. Degenerative changes are noted within the imaged cervical spine. No acute intracranial hemorrhage, midline shift, abnormal extra-axial collection, hydrocephalus or mass. Subcentimeter lipoma of the falx cerebri. No pathologic intracranial blooming artifact. Age-related involutional changes with mild ex vacuo ventriculomegaly. Mild white matter/FLAIR hyperintense foci suggest chronic microvascular ischemic disease. Mesial temporal lobes appear normal bilaterally. No acute seizure focus, gonzales matter heterotopia or cortical dysplasia. There is no abnormal intra-axial or extra-axial enhancement. The cerebral venous sinuses and major arterial flow voids appear patent. Mastoid air cells and paranasal sinuses are generally clear. The skull, orbits and soft tissues are unremarkable IMPRESSION: 1. No acute intracranial abnormality. No acute or subacute infarct. 2. No abnormal enhancement. 3. Age-related involutional changes with suggestion of mild chronic microvascular ischemic disease. Diabetes Follow up Diabetes Follow-up Needed for HgbA1c >9% Hospital Course (1) Altered mental status: (2) Neurocognitive disorder: (3) Diabetes mellitus with hyperglycemia: Patient was brought in by the manager trading for driving erratically and confused. Patient was evaluated with CT head and MRI brain which did not show any acute abnormalities He was evaluated by Neurology and Psychiatry Patient appears to have neurocognitive impairment, likely undiagnosed dementia. Vit B12 level was low. Hemoglobin A1c was elevated at 12.4 Patient did acknowledge that he sometimes forgets to take his meds. He does not remember the names and doses of his meds. He stated he has insulin but does not remember the doses and says he still has them at home. Patient recently lost his some months ago and moved to [place] where his son and son's fiancee lives I spoke with son who reported that his father lived him in [place] for some months after mother and he later got him his own place not too far from him. Son reported he had similar episode a week ago. I discussed findings and recommendations of Neurology with his son. Patient needs neurology follow up outpatient in [place] for neuropsych evaluation. Patient and son advised that patient should not drive until cleared by Neurology. I advised son to have patient stay within him until full evaluation with Neurology to ensure patient takes meds and insulin as prescribed. Total Time Total Time Spent Total Time Spent (In Minutes): 45 Total Time Includes: Examination of the Patient, Discharge Planning, Medication Reconciliation and Communication With Other Providers Discharge Plan Discharge Items Patient Disposition: Home - Self-Care Reason For Visit: CONFUSION Discharge Diagnosis: Neurocognitive impairment Poorly controlled diabetes mellitus Condition on Discharge: Good Activity: Per Instructions section Activity Comment: Stop driving for now until cleared to drive Non-emergency contact: Primary Care Provider and Neurologist Call non-emergency contact if: you have any medication questions and your symptoms worsen Follow-up/Referrals: PCP,NO [Primary Care Provider] - Diet: Carb Consistent or DM2 and Heart Healthy Addtl Attending Provider Instructions: Mr Andrews. You were hospitalized for confusion and concern about driving. You were evaluated by Neurologist and Psychiatrist and noted to have some neur ocognitive dysfunction. You need to follow up with Neurology outpatient for further evaluation. PLEASE DO NOT DRIVE UNTIL CLEARED TO DO SO. It is very important that you follow up with your Primary doctor and continue to take your medications and insulin as prescribed. It was a pleasure taking care of you. Pending Studies at Discharge: No Stand-Alone Forms: My [facility], Smoking Cessation Medications and DC Order Prescriptions: New cyanocobalamin (vitamin B-12) 1,000 mcg tablet 1,000 mcg PO DAILY Qty: 30 RF: 0 Continued clopidogrel 75 mg Tablet 75 mg PO DAILY RF: 0 isosorbide mononitrate 120 mg Tablet Extended Release 24 Hr 120 mg PO DAILY RF: 0 aspirin 81 mg Tablet 81 mg PO DAILY RF: 0 losartan 100 mg Tablet 100 mg PO DAILY RF: 0 multivitamin Capsule 1 cap PO DAILY RF: 0 atenolol 50 mg Tablet 50 mg PO DAILY RF: 0 ezetimibe 10 mg Tablet 10 mg PO DAILY RF: 0 ranolazine 500 mg Tablet Extended Release 12 Hr 500 mg PO BID RF: 0 cholecalciferol (vitamin D3) 25 mcg/drop ( 1,000 unit/drop) Drops 50 mcg PO DAILY RF: 0 Discharge Orders: Discharge Order (Routine); Ordered 05/31/21 Ordered By: Shiloh David Admission Data Admit Date/Time: 05/30/21 03:25 Attending Provider: Shiloh David I. Admit Provider: Yogi Lopez Primary Care Provider: PCP,NO Other Providers: Yogi Lopez ; Erica Benz ; Pati Johnston ; Shira Ascnecio ; Ashwin Jama ; Kaden Mas Other Interventions: Discharge Summary Assessment (RN) Last Done: 05/31/21 16:51
--- NOTE | 2021-05-31 18:52 | Communication Note ---
Date of Service: May 31, 2021 Code 44 attestation: 70-year-old male with significant past medical history including diabetes, hypertension, hyperlipidemia, CAD status post CABG, was admitted with acute confusion which was thought to be due to neurological impairment. He was evaluated by neurologist and has had relevant unremarkable investigations. He remained stable and was thought by the attending that he could be discharged home today. By [facility] guidelines, a determination that the admission or continued stay is not medically necessary has been made by a member of the UR committee and a physician for this hospital stay, therefore a Code 44 will be completed and the Inpatient admission will be changed to outpatient. Dr Dana bardales Member UR Committee
[2021-06-01] MEDS ORDERED: INSULIN ASPART PER UNIT SC SCH
== END 2021-05-31 17:45 | disposition home or self-care (01) ==
LOC: ED 23:07 → 2N 05-30 03:25 → INTOOBSV 05-30 03:25 → SUATTDRO 05-30 03:25 → 2N 05-30 05:14